=== PATIENT | male | born 1980 | race Two or more races ===

== ENCOUNTER 2019-06-17 12:39 | Emergency (ER) | payer OTHER ==
[~2019-06-17] VITALS: Ht 170.2 cm; Wt 77.1 kg
[2019-06-17] MEDS ORDERED: HYDROcodone-ACET 10/325MG TAB PO ONE (13:00)
[2019-06-17] MEDS ORDERED: TETANUS-DIPTH-ACEL PERTUSSIS 0.5ML SYRG IM ONE (13:00)
[2019-06-17] MEDS ORDERED: SODIUM CHLORIDE 0.9% 1,000 ML IV ONE (14:00)
[2019-06-17] MEDS ORDERED: ceFAZolin 1GM/50ML 50 ML IV ONE (14:00)
[2019-06-17 16:25] VITALS: BP 170/120
== END 2019-06-17 16:29 | disposition home or self-care (01) ==
LOC: ER 12:39
DX: S62.632A Displaced fracture of distal phalanx of right middle finger, initial encounter for closed fracture (principal); S62.634A Displaced fracture of distal phalanx of right ring finger, initial encounter for closed fracture; S60.131A Contusion of right middle finger with damage to nail, initial encounter; Z87.442 Personal history of urinary calculi; W20.8XXA Other cause of strike by thrown, projected or falling object, initial encounter; Y93.89 Activity, other specified; Y92.89 Other specified places as the place of occurrence of the external cause; Y99.0 Civilian activity done for income or pay
CPT/HCPCS: 12002; 73130; 90471; 90715; 96365; 99283; J0690; J7030

== ENCOUNTER 2019-06-24 17:03 | Emergency (ER) | payer OTHER ==
[~2019-06-24] VITALS: Ht 170.2 cm; Wt 79.8 kg
[2019-06-24 18:32] VITALS: BP 172/116
== END 2019-06-24 19:49 | disposition home or self-care (01) ==
LOC: ER 17:03
DX: S62.622D Displaced fracture of middle phalanx of right middle finger, subsequent encounter for fracture with routine healing (principal); X58.XXXD Exposure to other specified factors, subsequent encounter